=== PATIENT | male | born 1945 | race Caucasian/White ===

== ENCOUNTER 2020-08-26 21:02 | Emergency (ER) | payer MEDICARE, OTHER ==
[~2020-08-26] VITALS: Ht 172.7 cm; Wt 81.4 kg
[~2020-08-26 21:02] MED LIST: ASPI-496 PO; ATOR40TA78 PO; CLIN300C9 PO; ENAL2.5T8 PO; FINA5TAB4 PO; GABA300C10 PO; GLIP5TAB10 PO; METF500T17 PO; METO25TA35 PO; NITR0.4T28 SL; TAMS0.4C2 PO
[2020-08-26 21:05] VITALS: BP 150/52
--- NOTE | 2020-08-26 21:20 | NUR ---
pt came into ed tonight after a GLF while walked his dog, states he bent down to pear picker dog poo and had the leash wrapped around his hand and the great danielle (his dog) saw another dog and pulled him over, pt fell into a car with his head and scraped both knees lightly, significant right elbow laceration, abrasion to the 4 metatarsal joint and significant head laceration. pt reports tetanus is UTD. denies blood thinners. wounds cleaned with sterile saline, bacitracin applied to superficial abrasions. pt denies dizziness, UGARTE and is ANOx4. pt placed on spo2/bp monitoring. provided warm blankets for comfort. tm.
[2020-08-26] MEDS ORDERED: LIDOCAINE-MPF 1%, 5ML INFIL ONE (21:30)
[2020-08-26] MEDS ORDERED: NEOSPORIN OINT. PKT 1 PACKET ONE (21:31)
[2020-08-26] MEDS ORDERED: LIDOCAINE-MPF 1%, 5ML ONE (21:38)
--- NOTE | 2020-08-26 22:32 | NUR ---
Judah Traylor . Call when pt ready to be DC
--- NOTE | 2020-08-26 22:56 | NUR ---
pt to radiology at this time. nad, no change in condition, denies significant pain, vss, wctm.
--- NOTE | 2020-08-26 23:56 | NUR ---
pt given discharge instructions and they have confirmed that they understand the instructions. Patient ambulatory with steady gait preferred wheelchair to dc desk. pt called for ride. pt wounds dressed appropriately. provided supplies to change dressings a home, denies additional needs or questions at this time. nad, no personals belongings left in room after dc.
== END 2020-08-26 23:59 | disposition home or self-care (01) ==
LOC: ED 23:00
DX: S01.81XA Laceration without foreign body of other part of head, initial encounter (principal); S51.011A Laceration without foreign body of right elbow, initial encounter; S60.512A Abrasion of left hand, initial encounter; S60.511A Abrasion of right hand, initial encounter; S80.212A Abrasion, left knee, initial encounter; S80.211A Abrasion, right knee, initial encounter; E11.9 Type 2 diabetes mellitus without complications; W01.0XXA Fall on same level from slipping, tripping and stumbling without subsequent striking against object, initial encounter; Y93.89 Activity, other specified; Y92.89 Other specified places as the place of occurrence of the external cause; Y99.8 Other external cause status
CPT/HCPCS: 12034; 70450; 72125; 99285